=== PATIENT | male | born 1985 | race Caucasian/White ===

== ENCOUNTER 2023-05-24 11:13 | Emergency (ER) | payer BC, SELFPAY ==
--- NOTE | 2023-05-24 11:44 | ED.GENADULT ---
HPI - General Adult General Chief complaint: Extremity Injury, Upper Stated complaint: LUMP ON R HAND Time Seen by Provider: 05/24/23 11:44 Source: patient Mode of arrival: ambulatory Limitations: no limitations History of Present Illness HPI narrative: 37-year-old male patient presents to the [facility] with complaints of a lump on his right hand for past 3 days. Denies any pain and denies any trauma. Patient states at times his pinky finger gets numb and that just started today. Denies taking any medications. Denies any fevers body aches or chills. Related Data Home Medications Medication Instructions Recorded Confirmed No Home Medications 05/24/23 05/24/23 Allergies Allergy/AdvReac Type Severity Reaction Status Date / Time No Known Allergies Allergy Verified 05/24/23 11:43 Review of Systems Review of Systems: CONSTITUTIONAL: Denies fever, chills, or sweats. EYES: Denies visual changes, redness, or discharge. ENT: Denies rhinorrhea, congestion, sore throat, or otalgia. CARDIOVASCULAR: Denies chest pain, palpitations, or edema. RESPIRATORY: Denies cough or dyspnea. GASTROINTESTINAL: Denies abdominal pain, nausea, vomiting, or diarrhea. GENITOURINARY: Denies dysuria or hematuria. SKIN: Denies rash or itching. MUSCULOSKELETAL: Denies back pain, joint pain, or myalgia. Positive lump to right hand x3 days NEUROLOGIC: Denies headache, numbness, or weakness. PSYCHIATRIC: Denies anxiety or depression. [facility] Past Medical History Medical History (Updated 05/24/23 @ 12:21 by ALIDA Finley) No significant past medical history Comments At the time of my signature I agree with nursing past medical history, surgical, social, and family history. There is no relevant family history pertinent to the presenting complaint. Exam Narrative: GENERAL: Well-appearing, well-nourished, and in no acute distress. HEAD: Normocephalic, atraumatic. EYES: PERRLA and EOMI. ENT: Nares clear, no rhinorrhea or epistaxis. Mucous membranes moist. NECK: Supple. No lymphadenopathy CHEST: Clear to auscultation. No respiratory distress. HEART: Regular rate and rhythm. No murmur heard. Normal peripheral pulses. ABDOMEN: Soft, nontender, nondistended, normal active bowel sounds. EXTREMITIES: Normal range of motion. No edema. patient has a movable cyst noted to the proximal area of the dorsal hands between the 3rd and 4th metacarpal. No redness or warmth. no open wounds. SKIN: Warm, dry, no rash. NEURO: No focal deficits. Alert and oriented x3. Course Course Level of Care: Express Care Visit Vital Signs Vital signs: Vital Signs Temperature 36.9 C 05/24/23 11:47 Pulse Rate 85 05/24/23 11:47 Respiratory Rate 16 05/24/23 11:47 Blood Pressure 128/83 05/24/23 11:47 Pulse Oximetry 98 05/24/23 11:47 Temperature 36.9 C 05/24/23 11:47 Pulse Rate 85 05/24/23 11:47 Respiratory Rate 16 05/24/23 11:47 Blood Pressure 128/83 05/24/23 11:47 Pulse Oximetry 98 05/24/23 11:47 vital signs reviewed Medical Decision Making MDM Narrative Medical decision making narrative: discussed with patient that the lump that he is referring to is most likely a ganglion cyst. Discussed with patient that ill we typically do not do anything with these and they will go on away on their own however he can follow-up with his primary doctor. Discussed with patient that if he notices any redness, swelling or increase in pain then he would need to come back to be reassessed. Patient verbalized understanding denies any other questions or concerns at this time. Differential Diagnosis Differential Diagnosis: differential diagnosis: Paronychia, felon, cellulitis, flexor tenosynovitis, mallet finger, boutonniere deformity, flexor tendons, dislocated digits, unstable fracture, unstable ligamentous injury, closed space infection, carpal tunnel syndrome, contusion. Vital Signs Vital Signs: Vital Signs Tempera
[2023-05-24 11:47] VITALS: BP 128/83; PULSE 85; RESP 16; TEMP 36.9; O2SAT 98
== END 2023-05-24 12:24 | disposition home or self-care (01) ==
PROVIDERS: Emergency Provider Nurse Practitioner Family
DX: M67.441 Ganglion, right hand (principal)
CPT/HCPCS: 99202; G0463